=== PATIENT | male | born 1950 | race Caucasian/White ===

== ENCOUNTER → 2017-06-23 | Outpatient (CLI) | payer OTHER ==
[~2017-06-23] MED LIST: CATAPRES-TTS 10.1 M1 TD; CLONIDINE0.1 PO; KEFLEX500 MG PO; NEXIUM40 MG PO; NORCO 5-325 TA1 EACH PO; NORVASC10 MG PO; VICODIN 5-5001 EACH PO
[2017-06-23 10:15] VITALS: BP 152/73
--- NOTE | 2017-06-23 11:27 | NUR ---
CALL RECIEVED FROM DR. HESTER'S NURSE REQUESTING START OF RABIES VACCINE FOR CAT BITE. BITE HAPPENED LAST EVENING AT 1730. DR. HESTER ASKED IF PT NEEDED IMMUNE GLOBULIN OR JUST VACCINE. STATED NO IMMUNE GLOBULIN NEEDED. ORDER RECIVED VIA FAX FOR RABIES VACCINE. PT ARRIVED TO INFUSION FROM OFFICE. HISTORY REVIEWED. INJECTION COMPLETED AND TOLERATED WELL. DISCHARGE REVIEWED AND REST OF SERIES APPOINTMENTS SET. DENEIS QUESTIONS OR NEEDS AT DISCHARGE.
== END ==
LOC: M.INFUS 10:00
DX: Z23 Encounter for immunization (principal); S61.451A Open bite of right hand, initial encounter; W55.01XA Bitten by cat, initial encounter; Y93.89 Activity, other specified; Y92.89 Other specified places as the place of occurrence of the external cause; Y99.8 Other external cause status

== ENCOUNTER → 2017-06-26 | Outpatient (CLI) | payer OTHER | LOC: M.INFUS 07:51 | DX: Z23 Encounter for immunization (principal); S61.451A Open bite of right hand, initial encounter; W55.01XA Bitten by cat, initial encounter ==

== ENCOUNTER → 2017-06-30 | Outpatient (CLI) | payer OTHER ==
[2017-06-30 08:10] VITALS: BP 152/92
--- NOTE | 2017-06-30 09:03 | NUR ---
ARRIVED AMBULATORY. MADE SELF COMFORTABLE IN RECLINER. DENEIS ADVERSE REACTION TO PRIOR INJECTION OF SAME. INJECTION COMPLETED AND TOLERATED WELL. DENIES NEEDS AT DISCHARGE.
== END ==
LOC: M.INFUS 01:21
DX: Z23 Encounter for immunization (principal); S61.451A Open bite of right hand, initial encounter; W55.01XA Bitten by cat, initial encounter

== ENCOUNTER → 2017-07-07 | Outpatient (CLI) | payer OTHER ==
[2017-07-07 08:04] VITALS: BP 142/81
== END ==
LOC: M.INFUS 03:14
DX: Z23 Encounter for immunization (principal); S61.451A Open bite of right hand, initial encounter; W55.01XA Bitten by cat, initial encounter

== ENCOUNTER → 2019-12-07 | Day surgery (SDC) | payer MEDICARE ==
[~2019-12-07] MED LIST changes: +CATAPRES0.2 MG PO; +FAMOTIDINE 20 M20 MG PO; +FINASTERIDE5 MG PO; +IRON325 PO; +OMEPRAZOLE40 MG PO; +TAMSULOSIN HCL0.4 MG PO; +VIAGRA25 MG PO
--- NOTE | ~2019-12-07 | PROC ---
[address] [address] PROCEDURE REPORT Name: ROBERTKEVAN GONZALEZ Room: [facility] M.R.#: [id number] Admission: 12/07/19 Attend Phys: Sue Portillo MD Discharge: Date of : 50 Report #: [id number] THIS REPORT FOR: //name// cc: Trena Vee Tammy RNP ~ THIS REPORT FOR: //name// For GI report, please see the Provation report in Perceptive 7 content. By: [id number] Records Staff CLAIRE /IDA
[2019-12-07 10:10] LABS: HEMATOCRIT 43.1 % (42.0-52.0); HEMOGLOBIN 14.8 gm/dL (14.0-18.0); MCH 27.7 pg (26.0-34.0); MCHC 34.3 g/dL (28.0-37.0); MCV 80.8 fL (80.0-100.0); MPV 7.6 fl. (7.2-11.1); RBC 5.33 mil/uL (4.50-6.00); RDW-CV 14.8 % (10.5-14.5); WBC 6.3 thou/uL (4.0-11.0)
[2019-12-07 10:14] LABS: CALCIUM 8.7 mg/dL (8.5-10.1); CREATININE 1.2 mg/dL (0.6-1.3); POTASSIUM 4.1 mmol/L (3.5-5.1)
--- NOTE | 2019-12-07 10:40 | EKG ---
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
== END | disposition home or self-care (01) ==
LOC: M.SUR 12-06 11:04
PROVIDERS: ATTEND Internal Medicine Gastroenterology
DX: K22.70 Barrett's esophagus without dysplasia (principal); K44.9 Diaphragmatic hernia without obstruction or gangrene; Z79.899 Other long term (current) drug therapy; Z98.890 Other specified postprocedural states
CPT/HCPCS: 43270; J0132